=== PATIENT | male | born 1985 | race African-American/Black ===

== ENCOUNTER 2020-10-31 14:29 | Inpatient (IN) | payer SELFPAY ==
[2020-10-31] MEDS ORDERED: HYDROcodone/Acetaminophen 7.5/325 mg Tablet ONE (15:25)
[2020-10-31] MEDS ORDERED: Ondansetron PF 4 MG/2 ML Vial ONE (16:06)
[2020-10-31] MEDS ORDERED: Morphine 4 MG/ML VIAL ONE (16:06)
[2020-10-31 16:22] LABS: INR-International Normal Ratio 0.9; PTT 24.4 sec (22.9-36.1); Prothrombin Time 12.8 sec (12.0-14.7)
[2020-10-31 16:51] LABS: #Basophils 0.1 thou/uL (0.0-0.2); #Eosinphils 0.1 thou/uL (0.0-0.7); #Lymphocytes 2.1 thou/uL (1.20-3.40); #Monocytes 0.5 thou/uL (0.11-0.59); #Neutrophils 4.9 thou/uL (1.40-6.50); %Basophils 0.8 % (0.0-1.0); %Eosinophils 1.6 % (0.0-10.0); %Lymphocytes 27.5 % (21.0-51.0); %Monocytes 6.7 % (0.0-10.0); %Neutrophils 63.4 % (42.0-75.0); Hemoglobin 15.5 g/dL (14.0-18.0); Large Platelets SLIGHT; MDiff Complete? YES; Mean Corpuscular HGB CONC 34.3 g/dL (32.0-36.0); Mean Corpuscular Hemoglobin 28.6 pg (27.0-31.0); Mean Corpuscular Volume 83.3 fL (78.0-98.0); Mean Platelet Volume 12.2 fL (7.4-10.4); Platelet Count 141 thou/uL (130-400); RBC Distribution Width 11.4 % (11.5-14.5); RBC Morphology Normal; Red Blood Cell (RBC) Count 5.44 mill/uL (4.70-6.10); White Blood Cell (WBC) Count 7.8 thou/uL (4.8-10.8)
[2020-10-31 16:59] LABS: ALT (SGPT) 29 U/L (8-55); AST (SGOT) 20 U/L (5-34); Albumin 4.2 g/dL (3.5-5.0); Alkaline Phosphatase 73 U/L (40-110); Anion Gap 18 mmol/L (10-20); BUN (Urea Nitrogen) 4 mg/dL (8.9-20.6); Bilirubin, Total 0.5 mg/dL (0.2-1.2); Calc. Creatinine Clearance 0 mL/min (70-130); Calcium 8.8 mg/dL (7.8-10.44); Carbon Dioxide 18 mmol/L (22-29); Chloride 106 mmol/L (98-107); Globulin 2.4 g/dL (2.4-3.5); Glucose 250 mg/dL (70-105); Potassium 4.5 mmol/L (3.5-5.1); Protein, Total 6.6 g/dL (6.0-8.3); Sodium 137 mmol/L (136-145)
[2020-10-31] MEDS ORDERED: Dextrose 5% in Water 1,000 ML IV PRN (17:02)
[2020-10-31] MEDS ORDERED: Ondansetron PF 4 MG/2 ML Vial IVP PRN (17:02)
[2020-10-31] MEDS ORDERED: hydrALAZINE 20 MG/ML VIAL SLOW IVP PRN (17:02)
[2020-10-31] MEDS ORDERED: Dextrose 50% Abboject 50 ML SYRINGE SLOW IVP PRN (17:02)
[2020-10-31] MEDS ORDERED: Morphine 4 MG/ML VIAL SLOW IVP PRN (17:02)
[2020-10-31] MEDS ORDERED: Cyclobenzaprine 10 MG TAB PO PRN (17:05)
[2020-10-31] MEDS ORDERED: traMADol HCl 50 MG TAB PO PRN (17:05)
--- NOTE | 2020-10-31 17:07 | RAD ---
SINGLE VIEW OF THE CHEST: Comparison: None History: Pre-operative radiograph. FINDINGS: Single view of the chest shows normal sized cardiomediastinal silhouette. There is no evidence of con solidation, mass, or pleural effusion. The bones are unremarkable. IMPRESSION: No evidence of acute cardiopulmonary disease. POS: EAA
--- NOTE | 2020-10-31 17:18 | RAD ---
RIGHT ANKLE TWO VIEWS: History: Injury from trauma. FINDINGS: Displaced spiral fracture of the distal tibial metaphysis with some foreshortening and up to approxim ately 0.7 cm displacement. The ankle itself appears intact. IMPRESSION: Displaced spiral fracture distal tibial diaphysis. Recommend follow up tibia and fibula exam to evalu ate proximal fibula. POS: RRE
--- NOTE | 2020-10-31 17:21 | RAD ---
RIGHT TIBIA/FIBULA TWO VIEWS: FINDINGS: Displaced spiral fracture distal tibial diaphysis. In addition, there is a nondisplaced spiral fractu re of the proximal fibular diaphysis. The proximal tibia appears intact as does the visualized femur. IMPRESSION: Displaced spiral fracture mid distal tibial diaphysis and nondisplaced spiral fracture of the proxima l fibular diaphysis. POS: RRE
[2020-10-31 18:56] VITALS: BMI 30.1
[2020-10-31] MEDS ORDERED: Acetaminophen 500 MG TAB PO SCH (19:00)
[2020-10-31] MEDS: Famotidine/PF 20 mg/2ml Vial SLOW IVP SCH (19:39)
[2020-10-31] MEDS: Senokot S 8.6-50 MG TAB PO SCH (19:40)
--- NOTE | 2020-10-31 20:44 | HP ---
TRAUMA SURGEON: Dr. Galeano. CONSULTING PHYSICIAN: Dr. Ruff. HISTORY OF PRESENT ILLNESS: The patient is a 35-year-old male who presented to the emergency department after a mechanical fall at home where he slipped on ice while going to his car. He denies hitting his head, loss of consciousness or anticoagulation use. He complains of right hanna pain. He denies hitting his head, numbness and tingling in his bilateral upper and lower extremities, and neck pain. REVIEW OF SYSTEMS: All additional 10-point review of systems negative except as indicated above. PAST MEDICAL HISTORY: None. PAST SURGICAL HISTORY: None. SOCIAL HISTORY: The patient denies tobacco, drug, and alcohol use. MEDICATIONS: None. ALLERGIES: NO KNOWN DRUG ALLERGIES. PHYSICAL EXAMINATION: VITAL SIGNS: Temperature 97.2, pulse 100, respirations 16, oxygen saturation 93% on room air, blood pressure 146/98. GENERAL: Well-appearing young male, lying in bed with no signs of acute distress. PULMONARY: Equal chest rise and fall clear. Breath sounds bilaterally. No signs of acute respiratory distress. CARDIAC: Regular rate and rhythm. GASTROINTESTINAL: Abdomen soft, nontender, nondistended. EXTREMITIES: 2+ pulses in all extremities. Gross motor and sensation intact. No significant swelling noted. Splint to right lower extremity is clean, dry, and in place. 2+ pulses in bilateral radials, femorals, and DPs. BACK/SPINE: No step-offs, deformities, or tenderness to palpation of the cervical, thoracic or lumbar spine. NEUROLOGIC: GCS is 15. Pupils equal, round, reactive to light bilaterally. LABORATORY FINDINGS: White count 7.8, hemoglobin 15.5, hematocrit 45.3, platelets 141. INR 0.9. PTT 24.4. Sodium 137, potassium 4.7, chloride 106, bicarb 18, BUN 4, creatinine 0.78, glucose 250. Total bilirubin 0.5, AST 20, ALT 29, alkaline phosphatase 73. DIAGNOSTIC FINDINGS: X-ray of the right ankle demonstrates displaced spiral fracture of distal tibial diaphysis. Recommend followup tibia and fibular exam to evaluate the proximal fibula. X-ray of the right tib-fib demonstrates displaced spiral fracture of mid distal tibia diaphysis and nondisplaced spiral fracture of the proximal fibular diaphysis. Chest x-ray demonstrates no evidence of acute cardiopulmonary disease. ASSESSMENT: 1. Status post mechanical fall from standing. 2. Right tib-fib fracture. PLAN: The patient is admitted to the Trauma Service. He will go to the regular surgical nursing floor. Dr. Ruff of Orthopedic Surgery has been consulted and plans to take the patient to the OR tomorrow. He has a regular diet. At midnight, he will be n.p.o. with some IV fluid resuscitation. Repeat blood work in the morning. The patient can likely be discharged home after surgery tomorrow as I do not believe that he will need rehab placement. This patient was discussed with Dr. Galeano before this dictation. Job ID: [id number]
[2020-10-31] MEDS: Ibuprofen 600 MG TAB PO SCH (22:44)
[2020-10-31] MEDS: traMADol HCl 50 MG TAB PO PRN (22:44)
[2020-11-01] MEDS: Acetaminophen 500 MG TAB PO SCH ×5 (00:04→23:23)
[2020-11-01] MEDS ORDERED: Morphine 4 MG/ML VIAL ONE ×2 (03:14→08:13)
[2020-11-01] MEDS ORDERED: Acetaminophen 500 MG TAB ONE (06:22)
[2020-11-01] MEDS ORDERED: Ibuprofen 600 MG TAB ONE (06:22)
[2020-11-01] MEDS ORDERED: traMADol HCl 50 MG TAB ONE ×2 (06:23)
[2020-11-01] MEDS: Famotidine/PF 20 mg/2ml Vial SLOW IVP SCH ×2 (08:17→20:35)
[2020-11-01] MEDS ORDERED: FLU VACC QS2020-21(6MOS UP)/PF 60 MCG/0.5 ML SYRINGE IM ONE (09:00)
[2020-11-01] MEDS ORDERED: Fentanyl 100 MCG/2 ML VIAL ONE ×3 (11:39→14:30)
[2020-11-01] MEDS ORDERED: Midazolam HCl 2 mg/2 ml Vial ONE (11:39)
[2020-11-01] MEDS ORDERED: Bupivacaine PF 0.5% 30 ML VIAL ONE (12:16)
[2020-11-01] MEDS ORDERED: EPINEPHrine 1 MG/ML AMP ONE (12:16)
[2020-11-01] MEDS ORDERED: Bupivacaine 0.25% HCL 30 ML VIAL ONE (12:16)
[2020-11-01] MEDS ORDERED: PACU-Morphine 4MG/ML VIAL SLOW IVP PRN (12:49)
[2020-11-01] MEDS ORDERED: Promethazine HCl 25 MG/ML VIAL IM PRN (12:49)
[2020-11-01] MEDS ORDERED: Promethazine HCl 25 MG/ML VIAL SLOW IVP PRN (12:49)
--- NOTE | 2020-11-01 13:24 | CON ---
DATE OF CONSULTATION: 11/01/2020 HISTORY OF PRESENT ILLNESS: The patient is a 35-year-old male who slipped on some ice going to his car and had immediate pain and deformity in the right lower extremity just above the ankle. The patient was brought to the emergency room. X-rays revealed displaced distal tibial shaft fracture. The patient denies any neurologic complaints in the right foot. PAST MEDICAL HISTORY: Medical illnesses, none. PAST SURGICAL HISTORY: None. ALLERGIES: NONE. MEDICATIONS: None. PHYSICAL EXAMINATION: GENERAL: The patient is a very pleasant male, alert, oriented x3. VITAL SIGNS: The patient is afebrile, pulse 96, respiratory rate 16, O2 saturation 96% on room air, blood pressure 136/88. EXTREMITIES: Examination of the right lower extremity shows that there is some swelling and early bruising around the right ankle and lower leg. Skin is intact. The patient has good peripheral pulses. Normal sensation. He is able to flex and extend his toes well. IMPRESSION: Fracture of the right distal tibial shaft. PLAN: The patient will require open reduction and internal fixation of the right tibial shaft. Plan on using an intramedullary bowen. The patient's questions were answered and agreed to the procedure. Job ID: [id number]
--- NOTE | 2020-11-01 13:27 | OP ---
DATE OF PROCEDURE: 11/01/2020 PREOPERATIVE DIAGNOSIS: Fracture of the right distal tibial shaft. POSTOPERATIVE DIAGNOSIS: Fracture of the right distal tibial shaft. PROCEDURE PERFORMED: Intramedullary rodding of the right distal tibial shaft. ANESTHESIA: General. DESCRIPTION OF PROCEDURE: The patient was given preoperative IV antibiotics, taken to the operating room, placed in the supine position. Satisfactory general anesthesia was performed. The right lower extremity was sterilely prepped and draped in usual fashion. After exsanguination, tourniquet at the right mid thigh was raised to 250 mmHg. A longitudinal incision was made in the anterior medial aspect of the knee just medial to the patellar tendon. The anterior medial aspect of the proximal tibia was located. Guidewire was placed through that and was then over-reamed. A guidewire was then placed through this opening and crossing the fracture. Appropriate size nail was measured as a length of 375 mm. The intramedullary canal was sequentially reamed up to 12 mm and a Synthes 11 mm x 375 mm cannulated tibial nail was inserted, which had excellent fit in the isthmus. A 5.0 locking screw was placed distally in the bone and bowen to provide extra stability. This was all performed under fluoroscopic visualization. The fracture was very stable afterwards. Wounds were then irrigated and the knee wound was closed using #2 Vicryl for the retinacular tissue, 0 Vicryl for the fat and subcutaneous tissue, and skin was closed with skin david. The small incision for the locking screw was closed with david. The wounds were then infiltrated with a total of 30 mL of 0.5% Marcaine with epinephrine. Sterile dressing was applied. The patient was awakened, extubated, and transferred to recovery room in stable condition. ESTIMATED BLOOD LOSS: None. COMPLICATIONS: None. TOURNIQUET TIME: 32 minutes. Job ID: [id number]
[2020-11-01 13:39] LABS: SARS-CoV-2 PCR by NAA Not Detected (NotDetected)
[2020-11-01] MEDS ORDERED: Metoprolol Tartrate 5 MG/5 ML VIAL ONE (13:47)
[2020-11-01] MEDS: Sodium Chloride 0.9% 1,000 ML IV SCH ×2 (13:56→13:58)
[2020-11-01] MEDS: Ibuprofen 600 MG TAB PO SCH ×3 (13:58→23:23)
[2020-11-01] MEDS: Senokot S 8.6-50 MG TAB PO SCH ×2 (13:59→20:35)
[2020-11-01] MEDS: Polyethylene Glycol 3350 17 GM Packet PO SCH (13:59)
[2020-11-01] MEDS ORDERED: hydrALAZINE 20 MG/ML VIAL ONE (14:19)
[2020-11-01] MEDS ORDERED: Dexamethasone 20 MG/5 ML VIAL ONE (14:40)
[2020-11-01] MEDS ORDERED: PROPOFOL 200 MG/20 ML VIAL ONE (14:40)
[2020-11-01] MEDS ORDERED: Ondansetron PF 4 MG/2 ML Vial ONE (14:40)
[2020-11-01] MEDS ORDERED: Lidocaine 1% PF 5 ML VIAL ONE (14:40)
[2020-11-01] MEDS ORDERED: Ketorolac Tromethamine 30 MG/ML VIAL ONE (14:40)
[2020-11-01 17:10] LABS: Anion Gap 12 mmol/L (10-20); BUN (Urea Nitrogen) 6 mg/dL (8.9-20.6); Calc. Creatinine Clearance 151 mL/min (70-130); Calcium 8.8 mg/dL (7.8-10.44); Carbon Dioxide 27 mmol/L (22-29); Chloride 104 mmol/L (98-107); Glucose 152 mg/dL (70-105); Phosphorus 3.7 mg/dL (2.3-4.7); Sodium 139 mmol/L (136-145)
[2020-11-01 17:38] LABS: Magnesium 1.8 mg/dL (1.6-2.6)
[2020-11-01] MEDS ORDERED: Magnesium 2 GM/50 ML 2 GM in Premix Bag 1 BAG IVPB SCH (17:45)
--- NOTE | 2020-11-01 17:49 | PRG ---
DATE OF SERVICE: 11/01/2020 SUBJECTIVE: A 35-year-old male patient went to the OR today for repair of a right tib-fib fracture. The patient was working with physical therapy at bedside with crutch training. The patient's pain at the time of exam was well controlled. Plan for discharge home tomorrow if pain is controlled and able to ambulate with crutches safely. OBJECTIVE: VITAL SIGNS: Temp 97.8, pulse 74, respiratory rate 18, O2 saturation 98 on room air. GENERAL: Sitting at bedside with physical therapy. No acute distress. CARDIAC: Regular rate and rhythm. RESPIRATORY: Equal chest rise. No accessory muscle use. No respiratory distress. Speaking full sentences. ABDOMEN: Flat, nontender. EXTREMITIES: Right lower extremity in walking boot. Able to move his toes. Full range of motion in upper extremities and left lower extremity. ASSESSMENT: 1. Status post mechanical fall from standing. 2. Status post repair, right tibia-fibula fracture. PLAN: Status post right tibia-fibula fracture repair, resume regular diet, pain control, and bowel regimen as tolerated. PT and OT today plan to discharge home tomorrow. Discussed with Case Management, finding a ride for the patient, currently does not have a car or means of transportation to get home. Job ID: [id number] MTDD
[2020-11-01] MEDS: traMADol HCl 50 MG TAB PO PRN ×2 (17:51→23:23)
[2020-11-01 18:48] LABS: #Basophils 0.1 thou/uL (0.0-0.2); #Eosinphils 0.2 thou/uL (0.0-0.7); #Lymphocytes 3.7 thou/uL (1.20-3.40); #Monocytes 0.6 thou/uL (0.11-0.59); #Neutrophils 3.9 thou/uL (1.40-6.50); %Basophils 0.9 % (0.0-1.0); %Eosinophils 2.2 % (0.0-10.0); %Lymphocytes 43.9 % (21.0-51.0); %Monocytes 7.3 % (0.0-10.0); %Neutrophils 45.6 % (42.0-75.0); Hemoglobin 14.4 g/dL (14.0-18.0); Mean Corpuscular HGB CONC 32.6 g/dL (32.0-36.0); Mean Corpuscular Hemoglobin 27.8 pg (27.0-31.0); Mean Corpuscular Volume 85.1 fL (78.0-98.0); Platelet Count 148 thou/uL (130-400); RBC Distribution Width 11.6 % (11.5-14.5); Red Blood Cell (RBC) Count 5.19 mill/uL (4.70-6.10); White Blood Cell (WBC) Count 8.5 thou/uL (4.8-10.8)
--- NOTE | 2020-11-01 18:50 | RAD ---
RIGHT TIBIA AND FIBULA: INDICATIONS: Imaging during open reduction and internal fixation, right tibia. TECHNIQUE: A total of six fluoroscopic images were presented from the OR during surgery. FINDINGS/IMPRESSION: These images demonstrate an intramedullary bowen transfixing a tibial fracture. POS: AGW
[2020-11-02] MEDS: Ibuprofen 600 MG TAB PO SCH ×3 (05:39→23:28)
[2020-11-02] MEDS: traMADol HCl 50 MG TAB PO PRN ×4 (05:40→23:28)
[2020-11-02] MEDS: Acetaminophen 500 MG TAB PO SCH ×4 (05:40→23:28)
[2020-11-02] MEDS: Polyethylene Glycol 3350 17 GM Packet PO SCH (07:47)
[2020-11-02] MEDS: Senokot S 8.6-50 MG TAB PO SCH ×2 (07:48→20:18)
[2020-11-02] MEDS: Famotidine/PF 20 mg/2ml Vial SLOW IVP SCH (07:48)
--- NOTE | 2020-11-02 10:20 | PRG ---
DATE OF SERVICE: 11/02/2020 SUBJECTIVE: Mr. Diaz underwent intramedullary rodding of the right distal tibial shaft yesterday. The patient states he has good pain control. He has worked with physical therapy and is independent ambulating with crutches. The patient states he has used crutches before and is very proficient in them. He has no neurologic complaints in the right foot. OBJECTIVE: VITAL SIGNS: The patient has been afebrile. Blood pressure 160/83. EXTREMITIES: The right foot is neurovascularly intact. He is able to flex and extend his toes well. The patient appears to be safe to be discharged with crutches. He may touchdown weightbear on the right lower extremity. He is currently in a tall boot. He will follow up in my office in 2 weeks. Job ID: [id number]
--- NOTE | 2020-11-02 15:20 | DIS ---
DATE OF ADMISSION: 10/31/2020 DATE OF DISCHARGE: 11/02/2020 PROCEDURE PERFORMED: Dr. Javid Ruff, intramedullary rodding of the right distal tibia shaft. HOSPITAL COURSE: A 35-year-old male patient presented to the emergency department for a mechanical fall, slipped on ice while going to his car. The patient sustained a right tibia fracture. The patient went to the OR on 11/01 for repair. The patient is recovering well on the floor, pain is well controlled, tolerating a regular diet, and voiding spontaneously. The patient was evaluated by Orthopedic and cleared for discharge. The patient instructed to be touchdown weightbearing on right foot lower extremity. Remain in tall walking boot at all times. Follow up in orthopedic office in 2 weeks. The patient does need to follow up with Dr. Flores and he can call if he has any questions. OBJECTIVE: VITAL SIGNS: Stable. GENERAL: no acute distress. Pain well controlled. CARDIAC: Regular rate and rhythm. LUNGS: Clear bilaterally. No accessory muscle use. Speaking in full sentences. MUSCULOSKELETAL: Right walking boot in place. Sensation intact to distal toes. FOLLOWUP: - Follow up with Orthopedic Clinic in 2 weeks. - Continue current pain regimen -Call Return to the hospital if you develop SOB, chest pain or leg pain Job ID: [id number] [facility]
[2020-11-02] MEDS: Famotidine 20 MG TAB PO SCH (20:17)
[2020-11-03] MEDS: traMADol HCl 50 MG TAB PO PRN (05:53)
[2020-11-03] MEDS: Ibuprofen 600 MG TAB PO SCH (05:53)
[2020-11-03] MEDS: Acetaminophen 500 MG TAB PO SCH ×2 (05:54→12:15)
[2020-11-03] MEDS: Polyethylene Glycol 3350 17 GM Packet PO SCH (08:45)
[2020-11-03] MEDS: Famotidine 20 MG TAB PO SCH (08:45)
[2020-11-03] MEDS: Senokot S 8.6-50 MG TAB PO SCH (08:45)
[2020-11-03 10:54] VITALS: BP 133/74; TEMP 98.1
== END 2020-11-03 14:05 | disposition home or self-care (01) | DRG 494 ==
LOC: ERS 14:29 → SURG A 16:25
PROVIDERS: ADMIT Surgery; ATTEND Surgery
PROC: 0QHG06Z Insertion of Intramedullary Internal Fixation Device into Right Tibia, Open Approach (ICD-10-PCS; principal; 2020-11-01)
DX: S82.241A Displaced spiral fracture of shaft of right tibia, initial encounter for closed fracture (principal); S82.441A Displaced spiral fracture of shaft of right fibula, initial encounter for closed fracture; W01.0XXA Fall on same level from slipping, tripping and stumbling without subsequent striking against object, initial encounter; Y92.009 Unspecified place in unspecified non-institutional (private) residence as the place of occurrence of the external cause; Z20.822 Contact with and (suspected) exposure to COVID-19
CPT/HCPCS: 27752; 36415; 71045; 76000; 80048; 80053; 83735; 84100; 85025; 85610; 85730; 86850; 86900; 86901; 87635; 96374; 96375; C1713; J0171; J0360; J0690; J1100; J1885; J2250; J2270; J2405; J2704; J3010; J3475; S0020; S0028; U0003; U0005